=== PATIENT | male | born 1990 | race Hispanic/Latino ===

== ENCOUNTER 2017-05-23 08:11 | Emergency (ER) | payer OTHER ==
[~2017-05-23] VITALS: Ht 170.2 cm; Wt 120.0 kg
[~2017-05-23 08:11] MED LIST: FLEXERIL PO; LORTAB 7.5-3251 TAB PO; MOTRIN800 MG PO; PRILOSEC20 MG PO
[2017-05-23] MEDS ORDERED: ALBUTEROL SUL0.083 % IN (08:25)
[2017-05-23] MEDS ORDERED: MOTRIN800 MG PO (09:01)
[2017-05-23 09:04] VITALS: BP 138/92
== END 2017-05-23 09:04 | disposition home or self-care (01) | DRG 605 ==
LOC: ED 08:11
DX: S60.222A Contusion of left hand, initial encounter (principal); W50.0XXA Accidental hit or strike by another person, initial encounter; Y93.89 Activity, other specified; Y92.89 Other specified places as the place of occurrence of the external cause

== ENCOUNTER 2017-08-19 07:29 | Emergency (ER) | payer BC ==
[~2017-08-19] VITALS: Ht 170.2 cm; Wt 120.0 kg
[~2017-08-19 07:29] MED LIST changes: +ALBUTEROL SUL0.083 % IN
[2017-08-19 08:11] LABS: HEMATOCRIT 40.9 % (39.0-50.0); HEMOGLOBIN 14.3 g/dl (14.0-18.0); IMMATURE GRANULOCYTES 0.4 % (0.0-1.0); MEAN CELL VOLUME 89.3 fL CALC (80.0-100.0); MEAN CORPUSCULAR HGB 31.2 pG CALC (26.0-32.0); NEUT# 5.23 thou/uL (1.82-7.42); RED BLOOD COUNT 4.58 mill/uL (4.70-6.10); RED CELL DISTRI WIDTH 12.5 % (11.5-15.5)
[2017-08-19 08:37] LABS: ANION GAP 18 (6-22 (CALC)); BUN 9 mg/dL (9-20); BUN/CREATININE RATIO 10 (12-20 (CALC)); CARBON DIOXIDE 24 mmol/l (22-30); CHLORIDE 105 mmol/l (95-108); CREATININE 0.9 mg/dL (0.7-1.3); GFR > 60 ML/MIN (>=60 (CALC)); GFR FOR AFR.AMER. > 60 ML/MIN (>=60 (CALC)); POTASSIUM 3.6 mmol/l (3.5-5.1); SODIUM 143 mmol/l (137-146)
[2017-08-19 11:36] LABS: URINE BILIRUBIN - DIPSTICK NEGATIVE (NEGATIVE); URINE BLOOD DIPSTICK NEGATIVE (NEGATIVE); URINE COLOR YELLOW; URINE GLUCOSE - DIPSTICK NEGATIVE (NEGATIVE); URINE KETONE NEGATIVE (NEGATIVE); URINE LEUK ESTERASE NEGATIVE (NEGATIVE); URINE NITRITE - DIPSTICK NEGATIVE (Negative); URINE PH 5.5 (4.5-8.0); URINE PROTEIN - DIPSTICK NEGATIVE (NEG-TRACE); URINE UROBILINOGEN - DIPSTICK 0.2 E.U./dL (0.2)
[2017-08-19 11:38] LABS: URINE CLARITY CLEAR
[2017-08-19 11:45] VITALS: BP 109/57
== END 2017-08-19 12:45 | disposition home or self-care (01) | DRG 313 ==
LOC: ED 07:29
PROVIDERS: Family Medicine
DX: R07.89 Other chest pain (principal)

== ENCOUNTER 2018-05-11 22:06 | Emergency (ER) | payer BC ==
[~2018-05-11] VITALS: Ht 170.2 cm; Wt 136.0 kg
[2018-05-11 23:42] LABS: INFLUENZA A NONE DETECTED (NONE DETECT); INFLUENZA B NONE DETECTED (NONE DETECT)
[2018-05-11] MEDS ORDERED: ROBITUSSIN AC10 ML PO (23:56)
[2018-05-11] MEDS ORDERED: CEPHALEXIN500 M1 PO (23:56)
[2018-05-11] MEDS ORDERED: NAPROSYN500 MG PO (23:57)
[2018-05-12 00:23] VITALS: BP 139/82
== END 2018-05-12 00:23 | disposition home or self-care (01) | DRG 153 ==
LOC: ED 22:06
PROVIDERS: Emergency Medicine
DX: J06.9 Acute upper respiratory infection, unspecified (principal); F41.9 Anxiety disorder, unspecified; J45.909 Unspecified asthma, uncomplicated; K21.9 Gastro-esophageal reflux disease without esophagitis

== ENCOUNTER 2024-05-25 08:46 | Emergency (ER) | payer BC ==
[~2024-05-25] VITALS: Ht 170.2 cm; Wt 63.0 kg
[~2024-05-25 08:46] MED LIST changes: +CEPHALEXIN500 M1 PO; +NAPROSYN500 MG PO; +ROBITUSSIN AC10 ML PO
[2024-05-25 09:55] LABS: BASO% 0.3 % (0-3); EOS% 2.1 % (0-8); HEMATOCRIT 44.8 % (39.0-50.0); IMMATURE GRANULOCYTES 0.1 % (0.0-5.0); LYMPH% 19.1 % (15-41); MEAN CELL VOLUME 91.2 fL CALC (80.0-100.0); MEAN CORPUSCULAR HGB 30.5 pG CALC (26.0-32.0); MEAN CORPUSCULAR HGB CONC 33.5 g/dL CAL (32.0-36.0); MONO% 6.9 % (2-13); NEUT# 6.42 thou/uL (1.82-7.42); NEUT% 71.5 % (42-76); RED BLOOD COUNT 4.91 mill/uL (4.70-6.10); RED CELL DISTRI WIDTH 12.8 % (11.5-15.5); URINE BILIRUBIN - DIPSTICK Negative (NEGATIVE); URINE BLOOD DIPSTICK Negative (NEGATIVE); URINE GLUCOSE - DIPSTICK Negative (NEGATIVE); URINE KETONE Negative (NEGATIVE); URINE LEUK ESTERASE Negative (NEGATIVE); URINE NITRITE - DIPSTICK Negative (Negative); URINE PROTEIN - DIPSTICK Negative (NEG-TRACE); URINE UROBILINOGEN - DIPSTICK 0.2 E.U./dL (0.2)
[2024-05-25 10:01] LABS: URINE COLOR Yellow
[2024-05-25 10:06] LABS: ALBUMIN 4.5 g/dL (3.2-5.0); CREATININE 0.7 mg/dL (0.7-1.3); TOTAL PROTEIN 7.7 g/dL (6.3-8.2)
[2024-05-25 10:11] LABS: POTASSIUM 4.5 mmol/l (3.5-5.1)
[2024-05-25 11:58] VITALS: BP 137/83
== END 2024-05-25 11:59 | disposition home or self-care (01) | DRG 552 ==
LOC: ED 08:46
PROVIDERS: Family Medicine
DX: M54.9 Dorsalgia, unspecified (principal); E66.01 Morbid (severe) obesity due to excess calories; F41.9 Anxiety disorder, unspecified; J45.909 Unspecified asthma, uncomplicated; K21.9 Gastro-esophageal reflux disease without esophagitis